=== PATIENT | female | born 1975 | race Caucasian/White ===

== ENCOUNTER → 2017-04-29 | Outpatient (REF) | payer OTHER ==
[~2017-04-29] MED LIST: FLUO20CA8 PO; INDE80CA PO; MAXA5TAB10 PO
== END ==
LOC: M LAB REF 13:34
PROVIDERS: ATTEND Family Medicine
DX: N39.0 Urinary tract infection, site not specified (principal)

== ENCOUNTER → 2017-07-04 | Outpatient (REF) | payer OTHER ==
[2017-07-04 14:03] LABS: BASO # 0.1 10^3/uL (0.0-0.2); EOS # 0.1 10^3/uL (0.0-0.50); EOS % 1.8 % (0.0-3.0); IMMATURE GRANULOCYTE % 0.1 % (0-0); LYMPH # 2.3 10^3/uL (1.5-4.5); LYMPH % 33.4 % (24.0-44.0); MEAN CORPUSCULAR HEMOGLOBIN 25.8 pg (27.0-33.0); MEAN CORPUSCULAR HGB CONC 30.7 g/dl (32.0-36.5); MEAN CORPUSCULAR VOLUME 84.2 fl (80.0-96.0); MONO # 0.7 10^3/uL (0.0-0.8); MONO % 9.6 % (0.0-5.0); NEUTROPHILS # 3.6 10^3/uL (1.8-7.7); NEUTROPHILS % 54.1 % (36.0-66.0); PLATELET COUNT, AUTOMATED 353 10^3/uL (150-450); RED CELL DISTRIBUTION WIDTH 13.3 % (11.5-14.5); WHITE BLOOD COUNT 6.7 10^3/uL (4.0-10.0)
[2017-07-04 14:14] LABS: ALBUMIN 3.5 GM/DL (3.2-5.2); ALBUMIN/GLOBULIN RATIO 1.06 (1.00-1.93); ALKALINE PHOSPHATASE 63 U/L (45-117); ALT/SGPT 33 U/L (12-78); ANION GAP 8 MEQ/L (8-16); AST/SGOT 36 U/L (15-37); BILIRUBIN,TOTAL 0.3 MG/DL (0.2-1.0); BLOOD UREA NITROGEN 11 MG/DL (7-18); CALCIUM LEVEL 8.9 MG/DL (8.5-10.1); CARBON DIOXIDE LEVEL 26 MEQ/L (21-32); CHLORIDE LEVEL 105 MEQ/L (98-107); CREATININE FOR GFR 0.64 MG/DL (0.55-1.02); GLOMERULAR FILTRATION RATE > 60.0 (>58); GLUCOSE, FASTING 92 MG/DL (70-105); POTASSIUM SERUM 4.8 MEQ/L (3.5-5.1); SODIUM LEVEL 139 MEQ/L (136-145); TOTAL PROTEIN 6.8 GM/DL (6.4-8.2); VITAMIN B12 LEVEL 413 PG/ML (247-911)
[2017-07-04 14:15] LABS: FOLATE 19.2 NG/ML (>5.4)
== END ==
LOC: M LABNEURO 09:40
PROVIDERS: ATTEND Psychiatry & Neurology Neurology
DX: R51 Headache (principal)

== ENCOUNTER → 2017-10-30 | Outpatient (REF) | payer OTHER | LOC: M LAB REF 13:28 | DX: Z12.4 Encounter for screening for malignant neoplasm of cervix (principal) | CPT/HCPCS: G0123 ==

== ENCOUNTER → 2018-06-02 | Outpatient (CLI) | payer OTHER | LOC: M RAD 08:22 | DX: Z12.31 Encounter for screening mammogram for malignant neoplasm of breast (principal) ==

== ENCOUNTER → 2018-06-13 | Outpatient (CLI) | payer OTHER | LOC: M RAD 08:43 | DX: N60.01 Solitary cyst of right breast (principal) | CPT/HCPCS: 77065 ==

== ENCOUNTER → 2018-11-21 | Outpatient (REF) | payer OTHER ==
[2018-11-21 11:53] LABS: BASO # 0.1 10^3/uL (0.0-0.2); EOS # 0.2 10^3/uL (0.0-0.50); EOS % 1.9 % (0.0-3.0); HEMATOCRIT 38.4 % (36.0-47.0); HEMOGLOBIN 11.8 g/dl (12.0-15.5); LYMPH # 2.1 10^3/uL (1.5-4.5); LYMPH % 27.3 % (24.0-44.0); MEAN CORPUSCULAR HEMOGLOBIN 25.3 pg (27.0-33.0); MEAN CORPUSCULAR HGB CONC 30.7 g/dl (32.0-36.5); MEAN CORPUSCULAR VOLUME 82.4 fl (80.0-96.0); MONO # 0.9 10^3/uL (0.0-0.8); MONO % 11.6 % (0.0-5.0); NEUTROPHILS # 4.4 10^3/uL (1.8-7.7); NEUTROPHILS % 57.7 % (36.0-66.0); PLATELET COUNT, AUTOMATED 366 10^3/uL (150-450); RED BLOOD COUNT 4.66 10^6/uL (4.00-5.40); WHITE BLOOD COUNT 7.7 10^3/uL (4.0-10.0)
[2018-11-21 12:36] LABS: ALBUMIN 3.4 GM/DL (3.2-5.2); ALT/SGPT 22 U/L (12-78); BILIRUBIN,TOTAL 0.3 MG/DL (0.2-1.0); BLOOD UREA NITROGEN 9 MG/DL (7-18); CALCIUM LEVEL 8.2 MG/DL (8.5-10.1); CARBON DIOXIDE LEVEL 25 MEQ/L (21-32); CHLORIDE LEVEL 107 MEQ/L (98-107); CHOLESTEROL LEVEL 225 MG/DL (<200); CREATININE FOR GFR 0.63 MG/DL (0.55-1.30); GLOMERULAR FILTRATION RATE > 60.0 (>58); GLUCOSE, FASTING 101 MG/DL (70-100); HDL CHOLESTEROL 55 MG/DL (>40); LDL CHOLESTEROL 109 MG/DL (<100); NON-HDL-C 170 MG/DL; POTASSIUM SERUM 4.6 MEQ/L (3.5-5.1); SODIUM LEVEL 140 MEQ/L (136-145); TOTAL 25(OH) VITAMIN D 56.5 NG/ML (30.0-100.0); TOTAL PROTEIN 6.7 GM/DL (6.4-8.2); TRIGLYCERIDES LEVEL 305 MG/DL (<150)
== END ==
LOC: M LABDRAW1 08:56
PROVIDERS: ATTEND Family Medicine
DX: Z00.00 Encounter for general adult medical examination without abnormal findings (principal); E55.9 Vitamin D deficiency, unspecified

== ENCOUNTER → 2019-10-19 | Outpatient (REF) | payer OTHER ==
[2019-10-19 12:55] LABS: ALBUMIN 3.4 GM/DL (3.2-5.2); ALT/SGPT 15 U/L (12-78); BILIRUBIN,TOTAL 0.4 MG/DL (0.2-1.0); BLOOD UREA NITROGEN 10 MG/DL (7-18); CALCIUM LEVEL 9.2 MG/DL (8.5-10.1); CARBON DIOXIDE LEVEL 28 MEQ/L (21-32); CHLORIDE LEVEL 106 MEQ/L (98-107); CREATININE FOR GFR 0.72 MG/DL (0.55-1.30); GLOMERULAR FILTRATION RATE > 60.0 (>58); GLUCOSE, FASTING 115 MG/DL (70-100); POTASSIUM SERUM 4.7 MEQ/L (3.5-5.1); SODIUM LEVEL 139 MEQ/L (136-145); TOTAL PROTEIN 6.7 GM/DL (6.4-8.2)
[2019-10-19 13:04] LABS: HEMOGLOBIN A1c 5.5 %
== END ==
LOC: M LABDRAW1 08:17
PROVIDERS: ATTEND Family Medicine
DX: R73.01 Impaired fasting glucose (principal)

== ENCOUNTER → 2020-01-22 | Outpatient (CLI) | payer OTHER ==
[2020-01-22 11:36] LABS: BASO # 0.1 10^3/uL (0.0-0.2); BASO % 1.2 % (0.0-1.0); EOS # 0.2 10^3/uL (0.0-0.5); EOS % 2.7 % (0.0-3.0); HEMATOCRIT 38.5 % (36.0-47.0); HEMOGLOBIN 12.3 g/dl (12.0-15.5); LYMPH # 2.1 10^3/uL (1.5-5.0); LYMPH % 36.8 % (24.0-44.0); MEAN CORPUSCULAR HEMOGLOBIN 27.3 pg (27.0-33.0); MEAN CORPUSCULAR HGB CONC 31.9 g/dl (32.0-36.5); MEAN CORPUSCULAR VOLUME 85.4 fl (80.0-96.0); MONO # 0.7 10^3/uL (0.0-0.8); MONO % 12.2 % (0.0-5.0); NEUTROPHILS # 2.7 10^3/uL (1.5-8.5); NEUTROPHILS % 46.9 % (36.0-66.0); PLATELET COUNT, AUTOMATED 319 10^3/uL (150-450); RED BLOOD COUNT 4.51 10^6/uL (4.00-5.40); WHITE BLOOD COUNT 5.8 10^3/uL (4.0-10.0)
[2020-01-22 12:00] LABS: ERYTHROCYTE SEDIMENTATION RATE 5 mm/hr (0-20)
[2020-01-22 12:29] LABS: ALBUMIN 3.2 GM/DL (3.2-5.2); ALT/SGPT 23 U/L (12-78); BILIRUBIN,TOTAL 0.3 MG/DL (0.2-1.0); BLOOD UREA NITROGEN 10 MG/DL (7-18); CALCIUM LEVEL 9.1 MG/DL (8.5-10.1); CARBON DIOXIDE LEVEL 28 MEQ/L (21-32); CHLORIDE LEVEL 106 MEQ/L (98-107); CREATININE FOR GFR 0.64 MG/DL (0.55-1.30); GLOMERULAR FILTRATION RATE > 60.0 (>58); GLUCOSE, FASTING 80 MG/DL (70-100); POTASSIUM SERUM 4.9 MEQ/L (3.5-5.1); SODIUM LEVEL 139 MEQ/L (136-145); TOTAL PROTEIN 6.6 GM/DL (6.4-8.2)
== END ==
LOC: M WUC 10:07
DX: M35.9 Systemic involvement of connective tissue, unspecified (principal); R76.8 Other specified abnormal immunological findings in serum; M79.10 Myalgia, unspecified site; M19.90 Unspecified osteoarthritis, unspecified site

== ENCOUNTER → 2020-11-25 | Outpatient (CLI) | payer OTHER ==
[2020-11-25 12:16] LABS: BLOOD UREA NITROGEN 13 MG/DL (7-18); CARBON DIOXIDE LEVEL 25 MEQ/L (21-32); CHLORIDE LEVEL 108 MEQ/L (98-107); CREATININE FOR GFR 0.68 MG/DL (0.55-1.30); GLOMERULAR FILTRATION RATE > 60.0 (>58); GLUCOSE, FASTING 90 MG/DL (70-100); POTASSIUM SERUM 4.8 MEQ/L (3.5-5.1); SODIUM LEVEL 139 MEQ/L (136-145)
[2020-11-25 12:17] LABS: ALBUMIN 3.4 GM/DL (3.2-5.2); ALT/SGPT 19 U/L (12-78); BILIRUBIN,TOTAL 0.4 MG/DL (0.2-1.0); CALCIUM LEVEL 9.1 MG/DL (8.5-10.1); CHOLESTEROL LEVEL 254 MG/DL (<200); CHOLESTEROL RISK RATIO 4.379 (<5); HDL CHOLESTEROL 58 MG/DL (>40); LDL CHOLESTEROL 140 MG/DL (<100); NON-HDL-C 196 MG/DL; TOTAL PROTEIN 6.9 GM/DL (6.4-8.2); TRIGLYCERIDES LEVEL 278 MG/DL (<150)
[2020-11-25 13:31] LABS: HEMOGLOBIN A1c 5.5 %
== END ==
LOC: M WUC 08:41
PROVIDERS: ATTEND Family Medicine
DX: R73.01 Impaired fasting glucose (principal)

== ENCOUNTER → 2020-12-13 | Outpatient (REF) | payer OTHER | LOC: M LAB REF 19:00 | PROVIDERS: ATTEND Family Medicine | DX: Z01.419 Encounter for gynecological examination (general) (routine) without abnormal findings (principal) ==

== ENCOUNTER → 2021-08-30 | Outpatient (CLI) | payer OTHER ==
[2021-08-30 13:08] LABS: HEMATOCRIT 40.4 % (36.0-47.0); HEMOGLOBIN 12.4 g/dl (12.0-15.5); MEAN CORPUSCULAR HEMOGLOBIN 26.3 pg (27.0-33.0); MEAN CORPUSCULAR HGB CONC 30.7 g/dl (32.0-36.5); MEAN CORPUSCULAR VOLUME 85.6 fl (80.0-96.0); PLATELET COUNT, AUTOMATED 320 10^3/uL (150-450); RED BLOOD COUNT 4.72 10^6/uL (4.00-5.40); WHITE BLOOD COUNT 7.5 10^3/uL (4.0-10.0)
== END ==
LOC: M PLALAB 09:58
PROVIDERS: ATTEND Obstetrics & Gynecology
DX: N93.9 Abnormal uterine and vaginal bleeding, unspecified (principal)
CPT/HCPCS: 36415; 84443; 85027; G0463

== ENCOUNTER → 2021-09-08 | Outpatient (CLI) | payer OTHER | LOC: M WHC 09:08 | PROVIDERS: ATTEND Obstetrics & Gynecology | DX: N93.9 Abnormal uterine and vaginal bleeding, unspecified (principal) ==

== ENCOUNTER → 2021-10-10 | Outpatient (REF) | payer OTHER | LOC: M SFHCWAGY 19:20 | PROVIDERS: ATTEND Obstetrics & Gynecology | DX: N93.9 Abnormal uterine and vaginal bleeding, unspecified (principal) ==

== ENCOUNTER → 2021-12-06 | Outpatient (CLI) | payer OTHER ==
[~2021-12-06] MED LIST changes: +DEPA1TAB3 PO; +GABA-282 PO; +IBUP200C25 PO; +INDE80CA9 PO; +LEFL10TA12 PO; +PLAQ200T4 PO; +PROZ20CA11 PO; +RIZA5TAB52 PO
[2021-12-06 13:46] LABS: BASO # 0.1 10^3/uL (0.0-0.2); BASO % 1.1 % (0.0-1.0); EOS # 0.2 10^3/uL (0.0-0.5); EOS % 2.2 % (0.0-3.0); HEMATOCRIT 41.9 % (36.0-47.0); HEMOGLOBIN 12.9 g/dl (12.0-15.5); LYMPH # 2.3 10^3/uL (1.5-5.0); LYMPH % 29.7 % (24.0-44.0); MEAN CORPUSCULAR HEMOGLOBIN 26.2 pg (27.0-33.0); MEAN CORPUSCULAR HGB CONC 30.8 g/dl (32.0-36.5); MONO # 0.8 10^3/uL (0.0-0.8); NEUTROPHILS # 4.3 10^3/uL (1.5-8.5); NEUTROPHILS % 55.9 % (36.0-66.0); PLATELET COUNT, AUTOMATED 294 10^3/uL (150-450); RED BLOOD COUNT 4.93 10^6/uL (4.00-5.40); WHITE BLOOD COUNT 7.6 10^3/uL (4.0-10.0)
[2021-12-06 14:10] LABS: ALBUMIN 3.3 GM/DL (3.2-5.2); ALT/SGPT 23 U/L (12-78); BILIRUBIN,TOTAL 0.3 MG/DL (0.2-1.0); BLOOD UREA NITROGEN 13 MG/DL (7-18); CALCIUM LEVEL 9.1 MG/DL (8.5-10.1); CARBON DIOXIDE LEVEL 29 MEQ/L (21-32); CHLORIDE LEVEL 108 MEQ/L (98-107); CREATININE FOR GFR 0.72 MG/DL (0.55-1.30); GLOMERULAR FILTRATION RATE > 60.0 (>58); GLUCOSE, FASTING 83 MG/DL (70-100); POTASSIUM SERUM 5.2 MEQ/L (3.5-5.1); SODIUM LEVEL 141 MEQ/L (136-145)
== END ==
LOC: M WUC 10:38
PROVIDERS: ATTEND Nurse Practitioner Family
DX: Z01.818 Encounter for other preprocedural examination (principal)

== ENCOUNTER → 2021-12-11 | Outpatient (CLI) | payer OTHER | LOC: M LABSMTC 09:31 | PROVIDERS: ATTEND Anesthesiology | DX: Z01.818 Encounter for other preprocedural examination (principal); Z11.52 Encounter for screening for COVID-19 ==

== ENCOUNTER 2021-12-15 14:17 | Day surgery (SDC) | payer OTHER ==
[~2021-12-15] VITALS: Ht 160 cm; Wt 73.5 kg
[~2021-12-15 14:17] MED LIST changes: +LR 1,000 ML IV ONE
[2021-12-15 14:43] LABS: HEMATOCRIT 37.9 % (36.0-47.0); HEMOGLOBIN 12.3 g/dl (12.0-15.5); MEAN CORPUSCULAR HEMOGLOBIN 26.5 pg (27.0-33.0); MEAN CORPUSCULAR HGB CONC 32.5 g/dl (32.0-36.5); MEAN CORPUSCULAR VOLUME 81.7 fl (80.0-96.0); PLATELET COUNT, AUTOMATED 321 10^3/uL (150-450); RED BLOOD COUNT 4.64 10^6/uL (4.00-5.40); WHITE BLOOD COUNT 10.1 10^3/uL (4.0-10.0)
[2021-12-15] MEDS ORDERED: SCOPOLAMINE 1MG TRANSDERMAL PATCH TOP ONE (16:30)
[2021-12-15] MEDS ORDERED: MIDAZOLAM INJ 2MG/2ML VIAL (J2250 PER 1MG) As Ordered ONE (18:07)
[2021-12-15] MEDS ORDERED: fentaNYL 100 MCG/2 ML INJECTION As Ordered ONE (18:07)
[2021-12-15] MEDS ORDERED: dexameTHASONE 4 MG/ML 1ML VIAL (J1100 PER 1MG) As Ordered ONE (18:07)
[2021-12-15] MEDS ORDERED: LIDOCAINE 2% 100MG/5ML SDV (FOR ANES.) As Ordered ONE (18:07)
[2021-12-15] MEDS ORDERED: KETOROLAC 60MG 2ML VIAL As Ordered ONE (18:07)
[2021-12-15] MEDS ORDERED: ONDANSETRON 4MG/2ML VIAL As Ordered ONE (18:07)
[2021-12-15] MEDS ORDERED: propofoL 200 MG/20 ML VIAL As Ordered ONE (18:07)
[2021-12-15] MEDS ORDERED: ACETAMINOPHEN 1000MG 100ML IV BTL (OFIRMEV) (J0131 PER 10MG) As Ordered ONE (18:11)
[2021-12-15] MEDS ORDERED: SILVER NITRATE APPLICATOR As Ordered ONE (18:25)
[2021-12-15] MEDS ORDERED: KETOROLAC 30 MG/ML 1ML VIAL IV PRN (18:30)
[2021-12-15] MEDS ORDERED: IBUP1TAB7 PO (18:40)
[2021-12-15] MEDS ORDERED: COLA100C5 PO (18:41)
[2021-12-15] MEDS ORDERED: OXYC1TAB23 PO (18:41)
[2021-12-15] MEDS ORDERED: fentaNYL 100 MCG/2 ML INJECTION IV PRN (19:00)
[2021-12-15] MEDS ORDERED: HYDROMORPHONE HCL 0.5 MG/ 0.5 ML SYRINGE (J1170 PER 1) IV PRN (19:00)
[2021-12-15] MEDS ORDERED: ONDANSETRON 4MG/2ML VIAL IV PRN (19:00)
[2021-12-15] MEDS ORDERED: LR 1,000 ML IV SCH (19:00)
[2021-12-15] MEDS ORDERED: oxyCODONE 5MG TAB PO PRN (19:00)
[2021-12-15 19:17] VITALS: BP 168/85
== END 2021-12-15 19:51 | disposition home or self-care (01) ==
LOC: M SDC 14:17
PROVIDERS: ATTEND Obstetrics & Gynecology
DX: N93.9 Abnormal uterine and vaginal bleeding, unspecified (principal); K21.9 Gastro-esophageal reflux disease without esophagitis; M32.9 Systemic lupus erythematosus, unspecified; K58.8 Other irritable bowel syndrome; F41.9 Anxiety disorder, unspecified; M79.7 Fibromyalgia; Z79.899 Other long term (current) drug therapy; Z91.040 Latex allergy status
CPT/HCPCS: 36415; 58563; 85027; 86850; 86900; 86901; 88305; J0131; J1100; J1885; J2250; J2405; J3010

== ENCOUNTER → 2022-05-02 | Outpatient (REF) | payer OTHER ==
[~2022-05-02] MED LIST changes: +COLA100C5 PO; +IBUP1TAB7 PO; -LR 1,000 ML IV ONE; +OXYC1TAB23 PO
== END ==
LOC: M SFHCWAGY 17:08
PROVIDERS: ATTEND Obstetrics & Gynecology
DX: Z12.4 Encounter for screening for malignant neoplasm of cervix (principal)
CPT/HCPCS: 87624; G0123

== ENCOUNTER → 2022-05-10 | Outpatient (CLI) | payer OTHER | LOC: M WHC 08:01 | PROVIDERS: ATTEND Obstetrics & Gynecology | DX: R93.89 Abnormal findings on diagnostic imaging of other specified body structures (principal); N93.9 Abnormal uterine and vaginal bleeding, unspecified ==

== ENCOUNTER 2022-06-01 07:44 | Emergency (ER) | payer OTHER ==
[~2022-06-01] VITALS: Ht 162.6 cm; Wt 74.1 kg
[2022-06-01] MEDS ORDERED: KETOROLAC 30 MG/ML 1ML VIAL IV ONE (08:40)
[2022-06-01] MEDS ORDERED: LIDOCAINE 5% (LIDODERM) PATCH TD ONE (08:40)
[2022-06-01] MEDS ORDERED: diazePAM 10MG/2ML SYRINGE (J3360 PER 5MG) IV ONE ×2 (08:40→11:20)
[2022-06-01 08:45] LABS: BASO # 0.1 10^3/uL (0.0-0.2); BASO % 1.1 % (0.0-1.0); EOS # 0.2 10^3/uL (0.0-0.5); EOS % 2.5 % (0.0-3.0); HEMATOCRIT 40.3 % (36.0-47.0); LYMPH # 1.7 10^3/uL (1.5-5.0); LYMPH % 22.3 % (24.0-44.0); MEAN CORPUSCULAR HEMOGLOBIN 27.6 pg (27.0-33.0); MEAN CORPUSCULAR HGB CONC 32.3 g/dl (32.0-36.5); MEAN CORPUSCULAR VOLUME 85.6 fl (80.0-96.0); MONO # 0.9 10^3/uL (0.0-0.8); MONO % 12.2 % (2.0-8.0); NEUTROPHILS # 4.6 10^3/uL (1.5-8.5); NEUTROPHILS % 61.5 % (36.0-66.0); PLATELET COUNT, AUTOMATED 265 10^3/uL (150-450); RED BLOOD COUNT 4.71 10^6/uL (4.00-5.40); WHITE BLOOD COUNT 7.5 10^3/uL (4.0-10.0)
[2022-06-01 09:35] LABS: ALBUMIN 3.5 GM/DL (3.2-5.2); ALT/SGPT 20 U/L (12-78); BILIRUBIN,DIRECT < 0.1 MG/DL (0.0-0.2); BILIRUBIN,TOTAL 0.3 MG/DL (0.2-1.0); BLOOD UREA NITROGEN 12 MG/DL (7-18); CALCIUM LEVEL 9.1 MG/DL (8.5-10.1); CARBON DIOXIDE LEVEL 25 MEQ/L (21-32); CHLORIDE LEVEL 104 MEQ/L (98-107); CREATININE FOR GFR 0.71 MG/DL (0.55-1.30); GLOMERULAR FILTRATION RATE > 60.0 (>58); GLUCOSE, FASTING 114 MG/DL (70-100); HCG, SERUM QUANTITATIVE < 1.0 MIU/ML; LIPASE 174 U/L (73-393); SODIUM LEVEL 135 MEQ/L (136-145); TOTAL PROTEIN 6.8 GM/DL (6.4-8.2)
[2022-06-01] MEDS ORDERED: methylPREDNISolone 125MG 2ML VIAL IV ONE (09:55)
[2022-06-01] MEDS ORDERED: MORPHINE 4 MG/ML 1ML VIAL/SYRINGE IV ONE ×2 (09:55→14:35)
[2022-06-01 15:01] VITALS: BP 130/61
[2022-06-01] MEDS ORDERED: NAPR-837 PO (15:36)
[2022-06-01] MEDS ORDERED: METH-1165 PO (15:36)
[2022-06-01] MEDS ORDERED: PRED20TA PO (15:36)
[2022-06-01] MEDS ORDERED: ASPE4PAD TOP (15:36)
[2022-06-01] MEDS ORDERED: **NOTE PATIENT COMMENT** MISC XX SCH (21:00)
== END 2022-06-01 16:10 | disposition home or self-care (01) ==
LOC: EDBD 07:44 → M ED 07:44
DX: M51.27 Other intervertebral disc displacement, lumbosacral region (principal); M32.9 Systemic lupus erythematosus, unspecified; Z86.73 Personal history of transient ischemic attack (TIA), and cerebral infarction without residual deficits; Z87.442 Personal history of urinary calculi; Z91.040 Latex allergy status; Z79.899 Other long term (current) drug therapy
CPT/HCPCS: 72148; 74176; 80048; 80076; 83690; 84702; 85025; 93041; 96374; 96375; 96376; 99284; J1885; J2270; J2930; J3360

== ENCOUNTER 2022-06-25 04:57 | Inpatient (IN) | payer OTHER ==
[~2022-06-25] VITALS: Ht 160 cm; Wt 73.6 kg
[~2022-06-25 04:57] MED LIST changes: +ASPE4PAD TOP; +METH-1165 PO; +NAPR-837 PO; +PRED20TA PO
[2022-06-25] MEDS ORDERED: KETOROLAC 30 MG/ML 1ML VIAL IV ONE (07:30)
[2022-06-25] MEDS ORDERED: diazePAM 10MG/2ML SYRINGE (J3360 PER 5MG) IV ONE (07:30)
[2022-06-25] MEDS ORDERED: methylPREDNISolone 125MG 2ML VIAL IV ONE (07:30)
[2022-06-25 08:33] LABS: APPEARANCE, URINE MANUAL CLEAR (CLEAR); COLOR, URINE MANUAL YELLOW (YELLOW); PROTEIN, URINE MANUAL NEGATIVE (NEGATIVE); SPECIFIC GRAVITY,URINE MANUAL 1.015 (1.002-1.035)
[2022-06-25 08:34] LABS: BILIRUBIN, URINE MANUAL NEGATIVE (NEGATIVE); BLOOD URINE MANUAL NEGATIVE (NEGATIVE); GLUCOSE, URINE (UA) MANUAL NEGATIVE (NEGATIVE); KETONE, URINE MANUAL NEGATIVE (NEGATIVE); LEUKOCYTE ESTERASE, URINE MAN NEGATIVE (NEGATIVE); NITRITE, URINE MANUAL NEGATIVE (NEGATIVE); PH,URINE MAN 5.5 UNITS (5.0 - 7.0); UROBILINOGEN, URINE MANUAL NORMAL (NORMAL)
[2022-06-25] MEDS ORDERED: MORPHINE 4 MG/ML 1ML VIAL/SYRINGE IV ONE ×3 (08:45→19:05)
[2022-06-25] MEDS ORDERED: TRAM37.53 PO (09:04)
[2022-06-25] MEDS ORDERED: VITA500045 PO (09:04)
[2022-06-25 10:32] LABS: BASO % 0.5 % (0.0-1.0); EOS # 0.1 10^3/uL (0.0-0.5); EOS % 1.9 % (0.0-3.0); HEMATOCRIT 37.4 % (36.0-47.0); LYMPH # 1.2 10^3/uL (1.5-5.0); LYMPH % 16.6 % (24.0-44.0); MEAN CORPUSCULAR HEMOGLOBIN 27.2 pg (27.0-33.0); MEAN CORPUSCULAR HGB CONC 32.1 g/dl (32.0-36.5); MEAN CORPUSCULAR VOLUME 84.8 fl (80.0-96.0); MONO # 0.5 10^3/uL (0.0-0.8); MONO % 6.3 % (2.0-8.0); NEUTROPHILS # 5.5 10^3/uL (1.5-8.5); NEUTROPHILS % 74.4 % (36.0-66.0); PLATELET COUNT, AUTOMATED 271 10^3/uL (150-450); RED BLOOD COUNT 4.41 10^6/uL (4.00-5.40); WHITE BLOOD COUNT 7.3 10^3/uL (4.0-10.0)
[2022-06-25 11:02] LABS: ERYTHROCYTE SEDIMENTATION RATE 12 mm/hr (0-20)
[2022-06-25 11:08] LABS: BLOOD UREA NITROGEN 6 MG/DL (7-18); CARBON DIOXIDE LEVEL 26 MEQ/L (21-32); CHLORIDE LEVEL 109 MEQ/L (98-107); CREATININE FOR GFR 0.66 MG/DL (0.55-1.30); GLOMERULAR FILTRATION RATE > 60.0 (>58); GLUCOSE, FASTING 123 MG/DL (70-100); POTASSIUM SERUM 4.3 MEQ/L (3.5-5.1); SODIUM LEVEL 140 MEQ/L (136-145)
[2022-06-25] MEDS ORDERED: fentaNYL 100 MCG/2 ML INJECTION IV ONE ×2 (11:15→13:30)
[2022-06-25] MEDS ORDERED: GABAPENTIN 400MG CAP PO ONE (11:15)
[2022-06-25] MEDS ORDERED: IBUP80TA PO (14:15)
[2022-06-25] MEDS ORDERED: HOME MED LIST COMPLETE! XX SCH (14:20)
[2022-06-25] MEDS ORDERED: LIDOCAINE 5% (LIDODERM) PATCH TD ONE (22:00)
[2022-06-25] MEDS: DIVALPROEX 500 MG TAB PO SCH (22:49)
[2022-06-25] MEDS: GABAPENTIN 300 MG CAP PO SCH (22:49)
[2022-06-25] MEDS: KETOROLAC 30 MG/ML 1ML VIAL IV PRN (22:50)
[2022-06-25] MEDS: CYCLOBENZAPRINE 5MG TABLET PO PRN (22:59)
[2022-06-25] MEDS: HEPARIN SOD (PORCINE) 5000UNITS/ML 1ML VIAL/SYRINGE SC SCH (22:59)
[2022-06-26] MEDS: HYDROXYCHLOROQUINE 200 MG TAB PO SCH ×3 (00:33→21:44)
[2022-06-26] MEDS: ULTRACET TAB PO SCH ×5 (00:33→21:45)
[2022-06-26] MEDS: NORCO, ANEXSIA 5/325MG TABLET (HYDROcodone/ACETAMINOPHEN) PO PRN ×4 (02:31→23:01)
[2022-06-26] MEDS: KETOROLAC 30 MG/ML 1ML VIAL IV PRN ×3 (05:11→18:13)
[2022-06-26] MEDS: HEPARIN SOD (PORCINE) 5000UNITS/ML 1ML VIAL/SYRINGE SC SCH ×3 (05:56→21:46)
[2022-06-26 06:45] LABS: BLOOD UREA NITROGEN 12 MG/DL (7-18); CALCIUM LEVEL 9.3 MG/DL (8.5-10.1); CARBON DIOXIDE LEVEL 27 MEQ/L (21-32); CHLORIDE LEVEL 107 MEQ/L (98-107); CREATININE FOR GFR 0.65 MG/DL (0.55-1.30); GLOMERULAR FILTRATION RATE > 60.0 (>58); GLUCOSE, FASTING 115 MG/DL (70-100); POTASSIUM SERUM 5.1 MEQ/L (3.5-5.1); SODIUM LEVEL 138 MEQ/L (136-145)
[2022-06-26] MEDS ORDERED: FLUoxetine 20MG CAP PO SCH (09:00)
[2022-06-26] MEDS: GABAPENTIN 300 MG CAP PO SCH ×3 (09:04→21:44)
[2022-06-26] MEDS: PROPRANOLOL 80 MG LA CAP PO SCH (09:08)
[2022-06-26] MEDS: **NOTE PATIENT COMMENT** MISC XX SCH (09:56)
[2022-06-26] MEDS ORDERED: MORPHINE 4 MG/ML 1ML VIAL/SYRINGE IV ONE (10:55)
[2022-06-26 14:11] VITALS: BP 165/90
[2022-06-26] MEDS: CYCLOBENZAPRINE 5MG TABLET PO PRN ×2 (15:48→23:01)
[2022-06-26 15:50] VITALS: BP 185/96
[2022-06-26 21:33] VITALS: BP 158/82
[2022-06-26] MEDS: DIVALPROEX 500 MG TAB PO SCH (21:44)
[2022-06-26] MEDS: LIDOCAINE 5% (LIDODERM) PATCH TOP SCH (21:46)
[2022-06-26] MEDS ORDERED: CelecoXIB (CeleBREX) 100 MG CAP PO ONE (22:00)
[2022-06-27] MEDS ORDERED: MORPHINE 2 MG/ML 1ML VIAL IV PRN ×2 (02:55→06:00)
[2022-06-27] MEDS: HEPARIN SOD (PORCINE) 5000UNITS/ML 1ML VIAL/SYRINGE SC SCH ×3 (04:38→21:07)
[2022-06-27 04:47] VITALS: BP 180/92
[2022-06-27] MEDS ORDERED: MORPHINE 2 MG/ML 1ML VIAL IV ONE (05:00)
[2022-06-27] MEDS: NORCO, ANEXSIA 5/325MG TABLET (HYDROcodone/ACETAMINOPHEN) PO PRN ×3 (06:48→23:07)
[2022-06-27] MEDS: GABAPENTIN 300 MG CAP PO SCH (09:07)
[2022-06-27] MEDS: DULoxetine 20 MG CAP (CYMBALTA) PO SCH (09:07)
[2022-06-27] MEDS: CYCLOBENZAPRINE 5MG TABLET PO PRN ×2 (09:07→21:06)
[2022-06-27] MEDS: PROPRANOLOL 80 MG LA CAP PO SCH (09:07)
[2022-06-27] MEDS: ULTRACET TAB PO SCH ×4 (09:08→21:06)
[2022-06-27] MEDS: HYDROXYCHLOROQUINE 200 MG TAB PO SCH ×2 (09:08→21:06)
[2022-06-27] MEDS: **NOTE PATIENT COMMENT** MISC XX SCH (10:09)
[2022-06-27 14:08] LABS: INR 0.9; PROTHROMBIN TIME 12.5 SECONDS (12.7-14.5)
[2022-06-27] MEDS: GABAPENTIN 400MG CAP PO SCH ×2 (16:51→21:06)
[2022-06-27 20:56] VITALS: BP 129/93
[2022-06-27] MEDS: DIVALPROEX 500 MG TAB PO SCH (21:06)
[2022-06-27] MEDS: LIDOCAINE 5% (LIDODERM) PATCH TOP SCH (21:07)
[2022-06-28] VITALS (9 sets, daily range): BP systolic 146–179; BP diastolic 95–116
[2022-06-28] MEDS: KETOROLAC 30 MG/ML 1ML VIAL IV PRN (03:50)
[2022-06-28] MEDS ORDERED: hydrALAZINE 20MG/ML 1ML VIAL (J0360 PER 20MG) IV ONE (07:00)
[2022-06-28] MEDS: PROPRANOLOL 80 MG LA CAP PO SCH (07:27)
[2022-06-28] MEDS: CYCLOBENZAPRINE 5MG TABLET PO PRN ×2 (07:27→23:39)
[2022-06-28] MEDS: NORCO, ANEXSIA 5/325MG TABLET (HYDROcodone/ACETAMINOPHEN) PO PRN ×2 (07:27→22:39)
[2022-06-28] MEDS: DULoxetine 20 MG CAP (CYMBALTA) PO SCH (08:14)
[2022-06-28] MEDS: ULTRACET TAB PO SCH ×4 (08:14→20:01)
[2022-06-28] MEDS: GABAPENTIN 400MG CAP PO SCH ×3 (08:14→20:01)
[2022-06-28] MEDS: **NOTE PATIENT COMMENT** MISC XX SCH (08:14)
[2022-06-28] MEDS: HYDROXYCHLOROQUINE 200 MG TAB PO SCH ×2 (08:14→20:01)
[2022-06-28] MEDS ORDERED: TRANEXAMIC ACID 100 MG/ML 10ML VIAL As Ordered ONE ×2 (09:24→13:01)
[2022-06-28] MEDS ORDERED: BUPIVACAINE HCL 0.25% 10ML VIAL As Ordered ONE (09:24)
[2022-06-28] MEDS ORDERED: THROMBIN SOLN 20,000 UNITS KIT As Ordered ONE (09:24)
[2022-06-28] MEDS ORDERED: BUPIVACAINE LIPOSOME/PF 1.3% 20ML VIAL (13.3MG/ML)(EXPAREL) As Ordered ONE (09:25)
[2022-06-28] MEDS ORDERED: BUPIVACAINE/EPIN 0.5% 30 ML VIAL As Ordered ONE (09:25)
[2022-06-28] MEDS ORDERED: fentaNYL 250 MCG/5 ML INJECTION As Ordered ONE (12:05)
[2022-06-28] MEDS ORDERED: MIDAZOLAM INJ 2MG/2ML VIAL (J2250 PER 1MG) As Ordered ONE (12:06)
[2022-06-28] MEDS ORDERED: propofoL 200 MG/20 ML VIAL As Ordered ONE (12:06)
[2022-06-28] MEDS ORDERED: LIDOCAINE 2% 100MG/5ML SDV (FOR ANES.) As Ordered ONE (12:06)
[2022-06-28] MEDS ORDERED: ROCURONIUM BROMIDE 50 MG/5 ML VIAL As Ordered ONE (12:06)
[2022-06-28] MEDS ORDERED: dexameTHASONE 4 MG/ML 1ML VIAL (J1100 PER 1MG) As Ordered ONE (12:07)
[2022-06-28] MEDS ORDERED: ONDANSETRON 4MG 2ML VIAL As Ordered ONE (12:07)
[2022-06-28] MEDS ORDERED: ACETAMINOPHEN 1000MG 100ML IV BTL (OFIRMEV) (J0131 PER 10MG) As Ordered ONE (12:07)
[2022-06-28 12:56] LABS: URINE PREG TEST NEGATIVE (NEGATIVE)
[2022-06-28] MEDS ORDERED: SCOPOLAMINE 1MG TRANSDERMAL PATCH TOP ONE (13:05)
[2022-06-28] MEDS ORDERED: ceFAZolin 2 GM/D5W 50 ML IV BAG (J0690 PER 500MG) As Ordered ONE (13:44)
[2022-06-28] MEDS ORDERED: ePHEDrine SULFATE 25 MG/5 ML(5MG/ML) SYRINGE As Ordered ONE ×2 (14:01→14:18)
[2022-06-28] MEDS ORDERED: SUGAMMADEX SODIUM 500 MG/5 ML VIAL (BRIDION) As Ordered ONE (14:09)
[2022-06-28] MEDS ORDERED: HYDROmorphone HCL 2MG/ML 1ML VIAL As Ordered ONE (14:38)
[2022-06-28] MEDS ORDERED: VANCOMYCIN 1000MG/20ML VIAL As Ordered ONE (15:00)
[2022-06-28] MEDS ORDERED: LR 1,000 ML IV SCH (15:20)
[2022-06-28] MEDS ORDERED: MORPHINE 2 MG/ML 1ML VIAL IV PRN (15:20)
[2022-06-28] MEDS ORDERED: oxyCODONE 5MG TAB PO PRN (15:20)
[2022-06-28] MEDS ORDERED: ONDANSETRON 4MG 2ML VIAL IV PRN (15:20)
[2022-06-28] MEDS: fentaNYL 100 MCG/2 ML INJECTION IV PRN ×4 (15:53→16:24)
[2022-06-28] MEDS: DIVALPROEX 500 MG TAB PO SCH (20:01)
[2022-06-28] MEDS: LIDOCAINE 5% (LIDODERM) PATCH TOP SCH (22:00)
[2022-06-28] MEDS: ceFAZolin SOD 1 GM in D5W MINI-BAG PLUS 50 ML IV SCH (22:38)
[2022-06-28] MEDS: HEPARIN SOD (PORCINE) 5000UNITS/ML 1ML VIAL/SYRINGE SC SCH (22:38)
[2022-06-29 01:41] VITALS: BP 154/83
[2022-06-29] MEDS: KETOROLAC 30 MG/ML 1ML VIAL IV PRN (01:47)
[2022-06-29] MEDS ORDERED: BISACODYL 5 MG TAB PO PRN (01:50)
[2022-06-29] MEDS: DOCUSATE SODIUM 100MG CAPSULE PO SCH ×2 (02:27→08:30)
[2022-06-29 05:23] VITALS: BP 161/101
[2022-06-29] MEDS: ceFAZolin SOD 1 GM in D5W MINI-BAG PLUS 50 ML IV SCH (05:23)
[2022-06-29] MEDS: HEPARIN SOD (PORCINE) 5000UNITS/ML 1ML VIAL/SYRINGE SC SCH (05:23)
[2022-06-29] MEDS: NORCO, ANEXSIA 5/325MG TABLET (HYDROcodone/ACETAMINOPHEN) PO PRN ×2 (05:24→11:47)
[2022-06-29] MEDS ORDERED: oxyCODONE 5MG TAB PO ONE (06:00)
[2022-06-29 08:02] LABS: BASO % 0.1 % (0.0-1.0); EOS % 0.1 % (0.0-3.0); HEMATOCRIT 39.2 % (36.0-47.0); HEMOGLOBIN 12.5 g/dl (12.0-15.5); LYMPH # 2.2 10^3/uL (1.5-5.0); LYMPH % 15.8 % (24.0-44.0); MEAN CORPUSCULAR HEMOGLOBIN 27.1 pg (27.0-33.0); MEAN CORPUSCULAR HGB CONC 31.9 g/dl (32.0-36.5); MONO # 1.5 10^3/uL (0.0-0.8); MONO % 10.8 % (2.0-8.0); NEUTROPHILS # 10.1 10^3/uL (1.5-8.5); NEUTROPHILS % 72.8 % (36.0-66.0); PLATELET COUNT, AUTOMATED 349 10^3/uL (150-450); RED BLOOD COUNT 4.61 10^6/uL (4.00-5.40); WHITE BLOOD COUNT 13.9 10^3/uL (4.0-10.0)
[2022-06-29] MEDS ORDERED: CYMB1CAP4 PO (08:30)
[2022-06-29] MEDS ORDERED: CYCL5TAB PO (08:30)
[2022-06-29] MEDS: HYDROXYCHLOROQUINE 200 MG TAB PO SCH (08:30)
[2022-06-29] MEDS: GABAPENTIN 400MG CAP PO SCH (08:30)
[2022-06-29] MEDS: ULTRACET TAB PO SCH (08:30)
[2022-06-29] MEDS ORDERED: HYDR-3715 PO (08:30)
[2022-06-29] MEDS ORDERED: GABA-283 PO (08:30)
[2022-06-29 08:31] VITALS: BP 159/98
[2022-06-29] MEDS: PROPRANOLOL 80 MG LA CAP PO SCH (08:31)
[2022-06-29] MEDS: DULoxetine 20 MG CAP (CYMBALTA) PO SCH (08:31)
[2022-06-29] MEDS: **NOTE PATIENT COMMENT** MISC XX SCH (08:31)
[2022-06-29 08:33] LABS: BLOOD UREA NITROGEN 8 MG/DL (7-18); CALCIUM LEVEL 9.1 MG/DL (8.5-10.1); CARBON DIOXIDE LEVEL 27 MEQ/L (21-32); CHLORIDE LEVEL 104 MEQ/L (98-107); CREATININE FOR GFR 0.76 MG/DL (0.55-1.30); GLOMERULAR FILTRATION RATE > 60.0 (>58); GLUCOSE, FASTING 118 MG/DL (70-100); MAGNESIUM LEVEL 2.1 MG/DL (1.8-2.4); POTASSIUM SERUM 4.3 MEQ/L (3.5-5.1); SODIUM LEVEL 137 MEQ/L (136-145)
[2022-06-29] MEDS ORDERED: MIRALAX *UNIT DOSE* 17GM PACKET PO SCH (09:00)
[2022-06-29 10:45] VITALS: BP 172/104
[2022-06-29] MEDS: CYCLOBENZAPRINE 5MG TABLET PO PRN (11:47)
== END 2022-06-29 13:55 | disposition home or self-care (01) | DRG 520 ==
LOC: M ED 04:57 → M ED INP 21:42 → ENRESERV 06-26 14:46 → M MS5PR 06-26 15:55
PROVIDERS: ADMIT Internal Medicine; ATTEND Internal Medicine
PROC: 0ST40ZZ Resection of Lumbosacral Disc, Open Approach (ICD-10-PCS; principal; 2022-06-28 12:00)
DX: M51.17 Intervertebral disc disorders with radiculopathy, lumbosacral region (principal); I10 Essential (primary) hypertension; G43.909 Migraine, unspecified, not intractable, without status migrainosus; M32.10 Systemic lupus erythematosus, organ or system involvement unspecified; F32.A Depression, unspecified; Z79.899 Other long term (current) drug therapy; Z91.040 Latex allergy status

== ENCOUNTER 2022-07-05 11:04 | Inpatient (IN) | payer OTHER ==
[~2022-07-05] VITALS: Ht 160 cm; Wt 70.5 kg
[~2022-07-05 11:04] MED LIST changes: +CYCL5TAB PO; +CYMB1CAP4 PO; +GABA-283 PO; +HYDR-3715 PO; +IBUP80TA PO; +TRAM37.53 PO; +VITA500045 PO
[2022-07-05] MEDS ORDERED: diazePAM 5MG TABLET PO ONE (11:40)
[2022-07-05] MEDS ORDERED: ACETAMINOPHEN 1000MG 100ML IV BTL (OFIRMEV) (J0131 PER 10MG) IV ONE (11:40)
[2022-07-05 12:30] LABS: BASO # 0.1 10^3/uL (0.0-0.2); EOS # 0.3 10^3/uL (0.0-0.5); EOS % 3.1 % (0.0-3.0); HEMATOCRIT 38.3 % (36.0-47.0); HEMOGLOBIN 12.2 g/dl (12.0-15.5); LYMPH # 1.6 10^3/uL (1.5-5.0); LYMPH % 19.8 % (24.0-44.0); MEAN CORPUSCULAR HEMOGLOBIN 27.4 pg (27.0-33.0); MEAN CORPUSCULAR HGB CONC 31.9 g/dl (32.0-36.5); MEAN CORPUSCULAR VOLUME 86.1 fl (80.0-96.0); MONO # 1.2 10^3/uL (0.0-0.8); MONO % 13.9 % (2.0-8.0); NEUTROPHILS # 5.1 10^3/uL (1.5-8.5); NEUTROPHILS % 61.7 % (36.0-66.0); PLATELET COUNT, AUTOMATED 366 10^3/uL (150-450); RED BLOOD COUNT 4.45 10^6/uL (4.00-5.40); WHITE BLOOD COUNT 8.3 10^3/uL (4.0-10.0)
[2022-07-05] MEDS ORDERED: CYCL5TAB PO (12:35)
[2022-07-05] MEDS ORDERED: DIVA250T67 PO (12:48)
[2022-07-05] MEDS ORDERED: HYDR200T3 PO (12:48)
[2022-07-05] MEDS ORDERED: LEFL10TA12 PO (12:48)
[2022-07-05] MEDS ORDERED: PROP80CA PO (12:48)
[2022-07-05] MEDS ORDERED: OXYC10TA3 PO (12:48)
[2022-07-05] MEDS ORDERED: RIZA5TAB52 PO (12:48)
[2022-07-05] MEDS ORDERED: MORPHINE 4 MG/ML 1ML VIAL/SYRINGE IV ONE ×2 (12:50→15:20)
[2022-07-05] MEDS ORDERED: DULO1CAP4 PO (12:58)
[2022-07-05] MEDS ORDERED: ASPE4PAD TOP (12:58)
[2022-07-05] MEDS ORDERED: GABA-283 PO (12:58)
[2022-07-05] MEDS ORDERED: NAPR-885 PO (12:58)
[2022-07-05] MEDS ORDERED: KETO10TAB PO (12:58)
[2022-07-05 13:00] LABS: ERYTHROCYTE SEDIMENTATION RATE 34 mm/hr (0-20)
[2022-07-05 13:01] LABS: RSV AMPLIFICATION NEGATIVE (NEGATIVE)
[2022-07-05] MEDS ORDERED: HOME MED LIST COMPLETE! XX SCH (13:05)
[2022-07-05] MEDS ORDERED: PROHANCE 279.3MG/ML 15ML VIAL As Ordered ONE (13:57)
[2022-07-05 15:10] LABS: BLOOD UREA NITROGEN 6 MG/DL (7-18); C REACTIVE PROTEIN QUANTITATIV 0.77 MG/DL (0.00-0.30); CALCIUM LEVEL 7.8 MG/DL (8.5-10.1); CARBON DIOXIDE LEVEL 22 MEQ/L (21-32); CHLORIDE LEVEL 116 MEQ/L (98-107); CREATININE FOR GFR 0.47 MG/DL (0.55-1.30); GLOMERULAR FILTRATION RATE > 60.0 (>58); GLUCOSE, FASTING 89 MG/DL (70-100); POTASSIUM SERUM 3.7 MEQ/L (3.5-5.1); SODIUM LEVEL 146 MEQ/L (136-145)
[2022-07-05] MEDS ORDERED: RIZATRIPTAN MLT 10 MG TAB PO PRN (16:30)
[2022-07-05] MEDS ORDERED: ACETAMINOPHEN TAB 650MG DOSE (2X325MG) PO PRN (16:30)
[2022-07-05] MEDS ORDERED: LIDOCAINE 5% (LIDODERM) PATCH TD PRN (16:30)
[2022-07-05] MEDS: HYDROMORPHONE HCL 0.5 MG/ 0.5 ML SYRINGE (J1170 PER 1) IV PRN ×2 (17:48→21:57)
[2022-07-05] MEDS ORDERED: NAPROXEN 250 MG TAB PO PRN (18:00)
[2022-07-05] MEDS: CYCLOBENZAPRINE 5MG TABLET PO PRN ×2 (18:41→23:39)
[2022-07-05] MEDS: KETOROLAC TROMETHAMINE 10 MG TAB PO PRN (18:42)
[2022-07-05 19:07] LABS: INR 0.97; PROTHROMBIN TIME 13.1 SECONDS (12.5-14.5)
[2022-07-05] MEDS ORDERED: LEFLUNOMIDE 10 MG PO SCH (21:00)
[2022-07-05 21:05] VITALS: BP 178/106
[2022-07-05] MEDS: DIVALPROEX 250 MG TAB PO SCH (21:50)
[2022-07-05] MEDS: GABAPENTIN 400MG CAP PO SCH (21:50)
[2022-07-05] MEDS: HYDROXYCHLOROQUINE 200 MG TAB PO SCH (22:02)
[2022-07-05] MEDS: PROPRANOLOL 80 MG LA CAP PO SCH (22:05)
[2022-07-05 22:45] VITALS: BP 148/88
[2022-07-05] MEDS ORDERED: traMADol 50 MG TAB PO ONE (23:35)
[2022-07-06] MEDS: KETOROLAC TROMETHAMINE 10 MG TAB PO PRN (00:50)
[2022-07-06] MEDS: HYDROMORPHONE HCL 0.5 MG/ 0.5 ML SYRINGE (J1170 PER 1) IV PRN ×4 (01:37→13:57)
[2022-07-06] MEDS ORDERED: MORPHINE 4 MG/ML 1ML VIAL/SYRINGE IV ONE (04:00)
[2022-07-06 05:45] LABS: BASO # 0.1 10^3/uL (0.0-0.2); EOS # 0.2 10^3/uL (0.0-0.5); EOS % 2.7 % (0.0-3.0); HEMOGLOBIN 11.4 g/dl (12.0-15.5); LYMPH # 2.3 10^3/uL (1.5-5.0); LYMPH % 36.5 % (24.0-44.0); MEAN CORPUSCULAR HEMOGLOBIN 27.3 pg (27.0-33.0); MEAN CORPUSCULAR HGB CONC 31.7 g/dl (32.0-36.5); MEAN CORPUSCULAR VOLUME 86.3 fl (80.0-96.0); MONO # 1.1 10^3/uL (0.0-0.8); MONO % 16.9 % (2.0-8.0); NEUTROPHILS # 2.7 10^3/uL (1.5-8.5); NEUTROPHILS % 42.4 % (36.0-66.0); PLATELET COUNT, AUTOMATED 312 10^3/uL (150-450); RED BLOOD COUNT 4.17 10^6/uL (4.00-5.40); WHITE BLOOD COUNT 6.3 10^3/uL (4.0-10.0)
[2022-07-06 06:00] VITALS: BP 153/90
[2022-07-06 06:24] LABS: ALBUMIN 3.1 GM/DL (3.2-5.2); ALT/SGPT 27 U/L (12-78); BILIRUBIN,TOTAL 0.3 MG/DL (0.2-1.0); BLOOD UREA NITROGEN 7 MG/DL (7-18); CALCIUM LEVEL 9.4 MG/DL (8.5-10.1); CARBON DIOXIDE LEVEL 29 MEQ/L (21-32); CHLORIDE LEVEL 108 MEQ/L (98-107); CREATININE FOR GFR 0.68 MG/DL (0.55-1.30); GLOMERULAR FILTRATION RATE > 60.0 (>58); GLUCOSE, FASTING 102 MG/DL (70-100); POTASSIUM SERUM 4.6 MEQ/L (3.5-5.1); SODIUM LEVEL 141 MEQ/L (136-145)
[2022-07-06] MEDS ORDERED: NS 1,000 ML IV SCH (07:40)
[2022-07-06] MEDS: GABAPENTIN 400MG CAP PO SCH ×3 (08:40→21:10)
[2022-07-06] MEDS: HYDROXYCHLOROQUINE 200 MG TAB PO SCH ×2 (08:40→21:11)
[2022-07-06] MEDS: DIVALPROEX 250 MG TAB PO SCH ×2 (08:40→21:10)
[2022-07-06] MEDS: DULoxetine 20 MG CAP (CYMBALTA) PO SCH (08:40)
[2022-07-06 14:00] VITALS: BP 156/90
[2022-07-06] MEDS ORDERED: VANCOMYCIN 1000MG/20ML VIAL As Ordered ONE (15:55)
[2022-07-06] MEDS ORDERED: fentaNYL 100 MCG/2 ML INJECTION As Ordered ONE (16:30)
[2022-07-06] MEDS ORDERED: MIDAZOLAM INJ 2MG/2ML VIAL (J2250 PER 1MG) As Ordered ONE (16:31)
[2022-07-06] MEDS ORDERED: propofoL 200 MG/20 ML VIAL As Ordered ONE (16:32)
[2022-07-06] MEDS ORDERED: ONDANSETRON 4MG 2ML VIAL As Ordered ONE (16:32)
[2022-07-06] MEDS ORDERED: LIDOCAINE 2% 100MG/5ML SDV (FOR ANES.) As Ordered ONE (16:32)
[2022-07-06] MEDS ORDERED: ROCURONIUM BROMIDE 50 MG/5 ML VIAL As Ordered ONE (16:32)
[2022-07-06] MEDS ORDERED: BUPIVACAINE HCL 0.5% 30ML VIAL As Ordered ONE (16:48)
[2022-07-06] MEDS ORDERED: BUPIVACAINE LIPOSOME/PF 1.3% 20ML VIAL (13.3MG/ML)(EXPAREL) As Ordered ONE (16:48)
[2022-07-06] MEDS ORDERED: LR 1,000 ML IV SCH ×3 (17:00→19:55)
[2022-07-06] MEDS ORDERED: TRANEXAMIC ACID 100 MG/ML 10ML VIAL As Ordered ONE (17:05)
[2022-07-06] MEDS ORDERED: ceFAZolin 2 GM/D5W 50 ML IV BAG (J0690 PER 500MG) As Ordered ONE (17:05)
[2022-07-06] MEDS ORDERED: SCOPOLAMINE 1MG TRANSDERMAL PATCH TOP ONE (17:15)
[2022-07-06] MEDS ORDERED: ePHEDrine SULFATE 25 MG/5 ML(5MG/ML) SYRINGE As Ordered ONE ×2 (17:18→18:05)
[2022-07-06] MEDS ORDERED: PHENYLephrine 500MCG 5ML (100MCG/ML) SYRINGE As Ordered ONE (18:05)
[2022-07-06] MEDS ORDERED: THROMBIN SOLN 20,000 UNITS KIT As Ordered ONE (18:27)
[2022-07-06] MEDS ORDERED: SUGAMMADEX SODIUM 500 MG/5 ML VIAL (BRIDION) As Ordered ONE (18:54)
[2022-07-06] MEDS ORDERED: ACETAMINOPHEN 1000MG 100ML IV BTL (OFIRMEV) (J0131 PER 10MG) As Ordered ONE (18:57)
[2022-07-06] MEDS ORDERED: HYDROmorphone HCL 2MG/ML 1ML VIAL As Ordered ONE (19:13)
[2022-07-06] MEDS ORDERED: ONDANSETRON 4MG 2ML VIAL IV PRN ×2 (19:20→19:55)
[2022-07-06] MEDS ORDERED: PERCOCET 5MG/325MG TAB PO PRN (19:20)
[2022-07-06] MEDS ORDERED: fentaNYL 100 MCG/2 ML INJECTION IV PRN ×2 (19:20→19:55)
[2022-07-06] MEDS: MORPHINE 2 MG/ML 1ML VIAL IV PRN ×3 (19:52→20:23)
[2022-07-06] MEDS ORDERED: HYDROMORPHONE HCL 0.5 MG/ 0.5 ML SYRINGE (J1170 PER 1) IV PRN (19:55)
[2022-07-06] MEDS ORDERED: oxyCODONE 5MG TAB PO PRN (19:55)
[2022-07-06 20:45] VITALS: BP 156/91
[2022-07-06] MEDS: PROPRANOLOL 80 MG LA CAP PO SCH (21:11)
[2022-07-06 21:15] VITALS: BP 155/96
[2022-07-06 22:15] VITALS: BP 157/98
[2022-07-06] MEDS: CYCLOBENZAPRINE 5MG TABLET PO PRN (22:42)
[2022-07-06 23:15] VITALS: BP 158/98
[2022-07-07 00:15] VITALS: BP 165/101
[2022-07-07] MEDS: KETOROLAC TROMETHAMINE 10 MG TAB PO PRN (00:45)
[2022-07-07 01:15] VITALS: BP 166/102
[2022-07-07] MEDS: ceFAZolin SOD 1 GM in D5W MINI-BAG PLUS 50 ML IV SCH ×2 (01:50→08:25)
[2022-07-07] MEDS: HYDROMORPHONE HCL 0.5 MG/ 0.5 ML SYRINGE (J1170 PER 1) IV PRN ×6 (01:51→22:05)
[2022-07-07 04:30] VITALS: BP 161/100
[2022-07-07] MEDS: PERCOCET 5MG/325MG TAB PO PRN ×3 (04:55→18:13)
[2022-07-07 06:57] LABS: BASO # 0.1 10^3/uL (0.0-0.2); BASO % 0.7 % (0.0-1.0); EOS # 0.1 10^3/uL (0.0-0.5); EOS % 1.6 % (0.0-3.0); HEMATOCRIT 35.3 % (36.0-47.0); LYMPH # 2.2 10^3/uL (1.5-5.0); LYMPH % 26.8 % (24.0-44.0); MEAN CORPUSCULAR HEMOGLOBIN 27.4 pg (27.0-33.0); MEAN CORPUSCULAR HGB CONC 31.2 g/dl (32.0-36.5); MONO # 1.1 10^3/uL (0.0-0.8); MONO % 13.9 % (2.0-8.0); NEUTROPHILS # 4.6 10^3/uL (1.5-8.5); NEUTROPHILS % 56.8 % (36.0-66.0); PLATELET COUNT, AUTOMATED 312 10^3/uL (150-450); RED BLOOD COUNT 4.01 10^6/uL (4.00-5.40); WHITE BLOOD COUNT 8.1 10^3/uL (4.0-10.0)
[2022-07-07 07:27] LABS: BLOOD UREA NITROGEN 5 MG/DL (7-18); CALCIUM LEVEL 8.8 MG/DL (8.5-10.1); CARBON DIOXIDE LEVEL 30 MEQ/L (21-32); CHLORIDE LEVEL 106 MEQ/L (98-107); CREATININE FOR GFR 0.73 MG/DL (0.55-1.30); GLOMERULAR FILTRATION RATE > 60.0 (>58); GLUCOSE, FASTING 88 MG/DL (70-100); POTASSIUM SERUM 4.6 MEQ/L (3.5-5.1); SODIUM LEVEL 139 MEQ/L (136-145)
[2022-07-07] MEDS: GABAPENTIN 400MG CAP PO SCH ×3 (08:19→20:19)
[2022-07-07] MEDS: DIVALPROEX 250 MG TAB PO SCH ×2 (08:19→20:20)
[2022-07-07] MEDS: DULoxetine 20 MG CAP (CYMBALTA) PO SCH (08:19)
[2022-07-07] MEDS: HYDROXYCHLOROQUINE 200 MG TAB PO SCH ×2 (08:19→20:19)
[2022-07-07 09:30] LABS: C REACTIVE PROTEIN QUANTITATIV 1.11 MG/DL (0.00-0.30)
[2022-07-07] MEDS: CYCLOBENZAPRINE 5MG TABLET PO PRN ×2 (11:23→20:18)
[2022-07-07 14:00] VITALS: BP 129/79
[2022-07-07] MEDS ORDERED: HYDROMORPHONE HCL 0.5 MG/ 0.5 ML SYRINGE (J1170 PER 1) IV ONE (19:00)
[2022-07-07] MEDS ORDERED: LIDOCAINE 5% (LIDODERM) PATCH TD PRN (19:05)
[2022-07-07] MEDS: PROPRANOLOL 80 MG LA CAP PO SCH (20:19)
[2022-07-07] MEDS ORDERED: GABAPENTIN 100 MG CAP PO ONE (20:35)
[2022-07-07 21:42] VITALS: BP 143/90
[2022-07-08] MEDS: PERCOCET 5MG/325MG TAB PO PRN ×5 (01:24→20:43)
[2022-07-08 06:00] VITALS: BP 138/94
[2022-07-08 08:03] LABS: HEMATOCRIT 33.7 % (36.0-47.0); HEMOGLOBIN 10.6 g/dl (12.0-15.5); MEAN CORPUSCULAR HEMOGLOBIN 27.5 pg (27.0-33.0); MEAN CORPUSCULAR HGB CONC 31.5 g/dl (32.0-36.5); MEAN CORPUSCULAR VOLUME 87.3 fl (80.0-96.0); PLATELET COUNT, AUTOMATED 291 10^3/uL (150-450); RED BLOOD COUNT 3.86 10^6/uL (4.00-5.40); WHITE BLOOD COUNT 8.4 10^3/uL (4.0-10.0)
[2022-07-08 08:31] LABS: ATYPICAL LYMPH 6 % (0-5); BASOPHILS 3 % (0-1); BLOOD UREA NITROGEN 4 MG/DL (7-18); CALCIUM LEVEL 9.1 MG/DL (8.5-10.1); CARBON DIOXIDE LEVEL 31 MEQ/L (21-32); CHLORIDE LEVEL 107 MEQ/L (98-107); CREATININE FOR GFR 0.69 MG/DL (0.55-1.30); EOSINOPHILS 2 % (0-3); GLOMERULAR FILTRATION RATE > 60.0 (>58); GLUCOSE, FASTING 121 MG/DL (70-100); LYMPHOCYTES 25 % (16-44); MONOCYTES 10 % (0-5); NEUTROPHILS 54 % (28-66); POTASSIUM SERUM 4.9 MEQ/L (3.5-5.1); SODIUM LEVEL 141 MEQ/L (136-145)
[2022-07-08 08:32] LABS: PLATELET CLUMPS SMALL AMT; PLATELET ESTIMATE NORMAL (NORMAL)
[2022-07-08] MEDS: HYDROMORPHONE HCL 0.5 MG/ 0.5 ML SYRINGE (J1170 PER 1) IV PRN ×4 (08:53→22:41)
[2022-07-08] MEDS: HYDROXYCHLOROQUINE 200 MG TAB PO SCH ×2 (08:54→20:42)
[2022-07-08] MEDS: GABAPENTIN 400MG CAP PO SCH (08:54)
[2022-07-08] MEDS: DIVALPROEX 250 MG TAB PO SCH ×2 (08:54→20:42)
[2022-07-08] MEDS: DULoxetine 20 MG CAP (CYMBALTA) PO SCH (08:54)
[2022-07-08] MEDS: ASPIRIN 81MG ENTERIC TABLET PO SCH (09:49)
[2022-07-08] MEDS: CYCLOBENZAPRINE 5MG TABLET PO PRN ×2 (11:50→20:42)
[2022-07-08] MEDS ORDERED: GABAPENTIN 400MG CAP PO SCH (16:00)
[2022-07-08] MEDS: GABAPENTIN 300 MG CAP PO SCH ×2 (16:03→20:42)
[2022-07-08] MEDS: ENOXAPARIN 40MG/0.4ML SYRINGE (J1650 PER 10MG) SC SCH (20:42)
[2022-07-08] MEDS: PROPRANOLOL 80 MG LA CAP PO SCH (20:42)
[2022-07-08 22:00] VITALS: BP 142/95
[2022-07-09] MEDS: HYDROMORPHONE HCL 0.5 MG/ 0.5 ML SYRINGE (J1170 PER 1) IV PRN (02:47)
[2022-07-09] MEDS: CYCLOBENZAPRINE 5MG TABLET PO PRN ×2 (04:40→15:57)
[2022-07-09] MEDS: PERCOCET 5MG/325MG TAB PO PRN ×5 (04:41→21:20)
[2022-07-09 06:00] VITALS: BP 134/87
[2022-07-09 06:13] LABS: BASO # 0.1 10^3/uL (0.0-0.2); BASO % 0.9 % (0.0-1.0); EOS # 0.2 10^3/uL (0.0-0.5); EOS % 2.3 % (0.0-3.0); HEMATOCRIT 33.3 % (36.0-47.0); HEMOGLOBIN 10.6 g/dl (12.0-15.5); LYMPH # 2.6 10^3/uL (1.5-5.0); LYMPH % 39.4 % (24.0-44.0); MEAN CORPUSCULAR HEMOGLOBIN 27.6 pg (27.0-33.0); MEAN CORPUSCULAR HGB CONC 31.8 g/dl (32.0-36.5); MEAN CORPUSCULAR VOLUME 86.7 fl (80.0-96.0); MONO % 15.3 % (2.0-8.0); NEUTROPHILS # 2.7 10^3/uL (1.5-8.5); NEUTROPHILS % 41.8 % (36.0-66.0); PLATELET COUNT, AUTOMATED 284 10^3/uL (150-450); RED BLOOD COUNT 3.84 10^6/uL (4.00-5.40); WHITE BLOOD COUNT 6.5 10^3/uL (4.0-10.0)
[2022-07-09 06:43] LABS: BLOOD UREA NITROGEN 3 MG/DL (7-18); CALCIUM LEVEL 9.3 MG/DL (8.5-10.1); CARBON DIOXIDE LEVEL 31 MEQ/L (21-32); CHLORIDE LEVEL 106 MEQ/L (98-107); CREATININE FOR GFR 0.72 MG/DL (0.55-1.30); GLOMERULAR FILTRATION RATE > 60.0 (>58); GLUCOSE, FASTING 144 MG/DL (70-100); POTASSIUM SERUM 4.3 MEQ/L (3.5-5.1); SODIUM LEVEL 141 MEQ/L (136-145)
[2022-07-09] MEDS: GABAPENTIN 300 MG CAP PO SCH ×3 (08:55→21:17)
[2022-07-09] MEDS: DULoxetine 20 MG CAP (CYMBALTA) PO SCH (08:55)
[2022-07-09] MEDS: ASPIRIN 81MG ENTERIC TABLET PO SCH (08:55)
[2022-07-09] MEDS: DIVALPROEX 250 MG TAB PO SCH ×2 (08:55→21:17)
[2022-07-09] MEDS: HYDROXYCHLOROQUINE 200 MG TAB PO SCH ×2 (08:55→21:17)
[2022-07-09] MEDS: ENOXAPARIN 40MG/0.4ML SYRINGE (J1650 PER 10MG) SC SCH (21:18)
[2022-07-09] MEDS: PROPRANOLOL 80 MG LA CAP PO SCH (21:24)
[2022-07-10] MEDS: CYCLOBENZAPRINE 5MG TABLET PO PRN
[2022-07-10] MEDS: PERCOCET 5MG/325MG TAB PO PRN ×3 (01:59→12:57)
[2022-07-10 06:00] VITALS: BP 167/93
[2022-07-10 06:01] LABS: BASO # 0.1 10^3/uL (0.0-0.2); BASO % 0.9 % (0.0-1.0); EOS # 0.2 10^3/uL (0.0-0.5); HEMATOCRIT 35.3 % (36.0-47.0); LYMPH # 2.5 10^3/uL (1.5-5.0); MEAN CORPUSCULAR HEMOGLOBIN 27.2 pg (27.0-33.0); MEAN CORPUSCULAR HGB CONC 31.2 g/dl (32.0-36.5); MEAN CORPUSCULAR VOLUME 87.2 fl (80.0-96.0); MONO % 15.3 % (2.0-8.0); NEUTROPHILS # 2.6 10^3/uL (1.5-8.5); NEUTROPHILS % 40.5 % (36.0-66.0); PLATELET COUNT, AUTOMATED 298 10^3/uL (150-450); RED BLOOD COUNT 4.05 10^6/uL (4.00-5.40); WHITE BLOOD COUNT 6.3 10^3/uL (4.0-10.0)
[2022-07-10 06:30] LABS: BLOOD UREA NITROGEN 3 MG/DL (7-18); CALCIUM LEVEL 9.2 MG/DL (8.5-10.1); CARBON DIOXIDE LEVEL 29 MEQ/L (21-32); CHLORIDE LEVEL 105 MEQ/L (98-107); CREATININE FOR GFR 0.61 MG/DL (0.55-1.30); GLOMERULAR FILTRATION RATE > 60.0 (>58); GLUCOSE, FASTING 129 MG/DL (70-100); POTASSIUM SERUM 3.8 MEQ/L (3.5-5.1); SODIUM LEVEL 141 MEQ/L (136-145)
[2022-07-10] MEDS: DULoxetine 20 MG CAP (CYMBALTA) PO SCH (08:54)
[2022-07-10] MEDS: ASPIRIN 81MG ENTERIC TABLET PO SCH (08:54)
[2022-07-10] MEDS: GABAPENTIN 300 MG CAP PO SCH (08:54)
[2022-07-10] MEDS: HYDROXYCHLOROQUINE 200 MG TAB PO SCH (08:54)
[2022-07-10] MEDS: DIVALPROEX 250 MG TAB PO SCH (08:54)
[2022-07-10] MEDS ORDERED: CARVedilol 12.5 MG TAB PO SCH (09:00)
[2022-07-10] MEDS ORDERED: PERCOCET PO (12:27)
[2022-07-10 13:44] VITALS: BP 161/94
[2022-07-10 14:16] VITALS: BP 166/94
[2022-07-10 14:56] VITALS: BP 150/93
[2022-07-10] MEDS ORDERED: PROPRANOLOL 80 MG LA CAP PO ONE (15:00)
[2022-07-10] MEDS ORDERED: PROPRANOLOL 80 MG LA CAP PO SCH (21:00)
== END 2022-07-10 15:45 | disposition home health service (06) | DRG 520 ==
LOC: M ED 11:04 → M ED INP 16:28 → ENRESERV 18:30 → M MS5PR 21:05
PROVIDERS: ADMIT Internal Medicine; ATTEND Internal Medicine
PROC: 0SB40ZZ Excision of Lumbosacral Disc, Open Approach (ICD-10-PCS; principal; 2022-07-06 12:00)
DX: M51.27 Other intervertebral disc displacement, lumbosacral region (principal); I10 Essential (primary) hypertension; G43.909 Migraine, unspecified, not intractable, without status migrainosus; M32.10 Systemic lupus erythematosus, organ or system involvement unspecified; M79.7 Fibromyalgia; Z91.040 Latex allergy status; Z79.899 Other long term (current) drug therapy

== ENCOUNTER → 2022-07-16 | Outpatient (REF) | payer OTHER ==
[~2022-07-16] MED LIST changes: +DIVA250T67 PO; +DULO1CAP4 PO; +HYDR200T3 PO; +KETO10TAB PO; +NAPR-885 PO; +OXYC10TA3 PO; +PERCOCET PO; +PROP80CA PO
== END ==
LOC: M LAB REF 17:00
PROVIDERS: ATTEND Registered Nurse
DX: R30.0 Dysuria (principal)

== ENCOUNTER 2022-09-20 12:44 | Outpatient (RCR) | payer OTHER | END 2022-09-22 | LOC: M PT 12:44 | PROVIDERS: ATTEND Orthopaedic Surgery | DX: M51.16 Intervertebral disc disorders with radiculopathy, lumbar region (principal) ==

== ENCOUNTER 2022-10-18 14:50 | Outpatient (RCR) | payer OTHER | END 2022-10-23 | LOC: M PT 14:50 | PROVIDERS: ATTEND Orthopaedic Surgery | DX: M51.16 Intervertebral disc disorders with radiculopathy, lumbar region (principal) ==

== ENCOUNTER 2022-11-14 14:23 | Outpatient (RCR) | payer OTHER | END 2022-11-20 | LOC: M PT 14:23 | PROVIDERS: ATTEND Orthopaedic Surgery | DX: M51.16 Intervertebral disc disorders with radiculopathy, lumbar region (principal) ==

== ENCOUNTER 2022-12-20 09:15 | Outpatient (RCR) | payer OTHER | END 2022-12-21 | LOC: M PT 09:15 | PROVIDERS: ATTEND Orthopaedic Surgery | DX: M51.16 Intervertebral disc disorders with radiculopathy, lumbar region (principal) ==

== ENCOUNTER 2023-03-07 02:56 | Emergency (ER) | payer OTHER ==
[~2023-03-07] VITALS: Ht 160 cm; Wt 70.9 kg
[~2023-03-07 02:56] MED LIST changes: -HYDR200T3 PO; +HYDR200T46 PO
[2023-03-07] MEDS ORDERED: LIDOCAINE 5% (LIDODERM) PATCH TD ONE (07:05)
[2023-03-07] MEDS ORDERED: ACETAMINOPHEN 500 MG TAB PO ONE (07:05)
[2023-03-07] MEDS ORDERED: KETOROLAC 30 MG/ML 1ML VIAL IV ONE (07:05)
[2023-03-07] MEDS: HYDROMORPHONE HCL 0.5 MG/ 0.5 ML SYRINGE IV PRN ×4 (08:57→12:26)
[2023-03-07 09:20] LABS: HEMATOCRIT 41.5 % (36.0-47.0); HEMOGLOBIN 13.5 g/dl (12.0-15.5); MEAN CORPUSCULAR HGB CONC 32.5 g/dl (32.0-36.5); MEAN CORPUSCULAR VOLUME 85.9 fl (80.0-96.0); PLATELET COUNT, AUTOMATED 299 10^3/uL (150-450); RED BLOOD COUNT 4.83 10^6/uL (4.00-5.40); WHITE BLOOD COUNT 6.8 10^3/uL (4.0-10.0)
[2023-03-07 09:45] LABS: BLOOD UREA NITROGEN 10 MG/DL (9-23); CALCIUM LEVEL 8.5 MG/DL (8.5-10.1); CARBON DIOXIDE LEVEL 25 MMOL/L (20-31); CHLORIDE LEVEL 109 MMOL/L (98-107); CREATININE FOR GFR 0.73 MG/DL (0.55-1.30); GLOMERULAR FILTRATION RATE > 60.0 (>58); GLUCOSE, FASTING 84 MG/DL (60-100); POTASSIUM SERUM 4.2 MMOL/L (3.5-5.1); SODIUM LEVEL 139 MMOL/L (136-145)
[2023-03-07 12:49] VITALS: BP 162/78; TEMP 98.2; O2SAT 98
== END 2023-03-07 12:52 | disposition short-term general hospital (02) ==
LOC: M ED 02:56 → EDBD 02:56 → M ED 12:52
DX: M51.26 Other intervertebral disc displacement, lumbar region (principal); M51.27 Other intervertebral disc displacement, lumbosacral region; G43.909 Migraine, unspecified, not intractable, without status migrainosus; M32.9 Systemic lupus erythematosus, unspecified; M79.7 Fibromyalgia; Z91.040 Latex allergy status; Z79.1 Long term (current) use of non-steroidal anti-inflammatories (NSAID); Z79.899 Other long term (current) drug therapy
CPT/HCPCS: 72131; 80048; 85027; 87635; 96374; 96375; 96376; 99285; J1170; J1885

== ENCOUNTER → 2023-08-18 | Outpatient (REF) | payer OTHER ==
[~2023-08-18] MED LIST changes: -GABA-283 PO; +GABA-284 PO
== END ==
LOC: M LAB REF 19:45
PROVIDERS: ATTEND Physician Assistant
DX: R30.0 Dysuria (principal)

== ENCOUNTER → 2023-10-19 | Outpatient (REF) | payer OTHER | LOC: M WUC 19:02 | PROVIDERS: ATTEND Student in an Organized Health Care Education/Training Program | DX: R30.0 Dysuria (principal) ==

== ENCOUNTER → 2024-02-20 | Outpatient (REF) | payer OTHER | LOC: M LAB REF 17:09 | PROVIDERS: ATTEND Registered Nurse | DX: R30.0 Dysuria (principal) ==

== ENCOUNTER → 2024-02-24 | Outpatient (REF) | payer OTHER | LOC: M LAB REF 17:02 | PROVIDERS: ATTEND Registered Nurse | DX: N89.8 Other specified noninflammatory disorders of vagina (principal) ==

== ENCOUNTER → 2024-07-03 | Outpatient (CLI) | payer OTHER ==
[~2024-07-03] MED LIST changes: +GABA-1172 PO; -GABA-282 PO; +TRAM1TAB42 PO; -TRAM37.53 PO
[2024-07-03 13:18] LABS: BASO # 0.1 10^3/uL (0.0-0.2); EOS # 0.1 10^3/uL (0.0-0.5); EOS % 1.8 % (0.0-3.0); HEMATOCRIT 41.1 % (36.0-47.0); HEMOGLOBIN 12.8 g/dl (12.0-15.5); LYMPH # 2.1 10^3/uL (1.5-5.0); LYMPH % 30.8 % (24.0-44.0); MEAN CORPUSCULAR HEMOGLOBIN 27.3 pg (27.0-33.0); MEAN CORPUSCULAR HGB CONC 31.1 g/dl (32.0-36.5); MEAN CORPUSCULAR VOLUME 87.6 fl (80.0-96.0); MONO % 15.2 % (2.0-8.0); NEUTROPHILS # 3.4 10^3/uL (1.5-8.5); NEUTROPHILS % 51.1 % (36.0-66.0); PLATELET COUNT, AUTOMATED 314 10^3/uL (150-450); RED BLOOD COUNT 4.69 10^6/uL (4.00-5.40); WHITE BLOOD COUNT 6.7 10^3/uL (4.0-10.0)
[2024-07-03 13:40] LABS: VALPROIC ACID (DEPAKOTE) 19.2 UG/ML (50.0-100.0)
[2024-07-03 13:41] LABS: ALBUMIN 3.4 G/DL (3.2-5.2); ALKALINE PHOSPHATASE 58 U/L (46-116); ALT/SGPT 16 U/L (7.0-40); AST/SGOT 15 U/L (<34); BILIRUBIN,TOTAL 0.4 MG/DL (0.3-1.2); BLOOD UREA NITROGEN 13 MG/DL (9-23); CALCIUM LEVEL 9.7 MG/DL (8.5-10.1); CARBON DIOXIDE LEVEL 28 MMOL/L (20-31); CHLORIDE LEVEL 111 MMOL/L (98-107); CREATININE FOR GFR 0.67 MG/DL (0.55-1.30); GLOMERULAR FILTRATION RATE > 60.0 (>58); GLUCOSE, FASTING 76 MG/DL (60-100); POTASSIUM SERUM 5.2 MMOL/L (3.5-5.1); SODIUM LEVEL 138 MMOL/L (136-145); TOTAL PROTEIN 6.5 G/DL (5.7-8.2)
== END ==
LOC: M WUC 09:31
PROVIDERS: ATTEND Psychiatry & Neurology Neurology
DX: R51.9 Headache, unspecified (principal)

== ENCOUNTER → 2024-09-09 | Outpatient (CLI) | payer OTHER ==
[~2024-09-09] MED LIST changes: -CYCL5TAB PO; +CYCL5TAB4 PO
[2024-09-09 12:24] LABS: BASO # 0.1 10^3/uL (0.0-0.2); BASO % 0.8 % (0.0-1.0); EOS # 0.2 10^3/uL (0.0-0.5); EOS % 2.8 % (0.0-3.0); HEMOGLOBIN 12.5 g/dl (12.0-15.5); LYMPH # 2.2 10^3/uL (1.5-5.0); MEAN CORPUSCULAR HEMOGLOBIN 27.5 pg (27.0-33.0); MEAN CORPUSCULAR HGB CONC 31.3 g/dl (32.0-36.5); MEAN CORPUSCULAR VOLUME 88.1 fl (80.0-96.0); MONO # 0.9 10^3/uL (0.0-0.8); MONO % 13.3 % (2.0-8.0); NEUTROPHILS # 3.3 10^3/uL (1.5-8.5); NEUTROPHILS % 49.9 % (36.0-66.0); PLATELET COUNT, AUTOMATED 263 10^3/uL (150-450); RED BLOOD COUNT 4.54 10^6/uL (4.00-5.40); WHITE BLOOD COUNT 6.5 10^3/uL (4.0-10.0)
[2024-09-09 12:41] LABS: ALBUMIN 3.3 G/DL (3.2-5.2); ALKALINE PHOSPHATASE 56 U/L (35-104); ALT/SGPT 18 U/L (7.0-40); AST/SGOT 19 U/L (<34); BILIRUBIN,TOTAL 0.4 MG/DL (0.3-1.2); BLOOD UREA NITROGEN 12 MG/DL (9-23); CALCIUM LEVEL 9.6 MG/DL (8.5-10.1); CARBON DIOXIDE LEVEL 27 MMOL/L (20-31); CHLORIDE LEVEL 108 MMOL/L (98-107); CHOLESTEROL LEVEL 235 MG/DL (<200); CHOLESTEROL RISK RATIO 4.01 (<5); CREATININE FOR GFR 0.79 MG/DL (0.55-1.30); GLOMERULAR FILTRATION RATE > 60.0 (>58); GLUCOSE, FASTING 74 MG/DL (60-100); HDL CHOLESTEROL 58.5 MG/DL (>40); LDL CHOLESTEROL 127.3 MG/DL (<100); NON-HDL-C 176.5 MG/DL; POTASSIUM SERUM 5.6 MMOL/L (3.5-5.1); SODIUM LEVEL 141 MMOL/L (136-145); TOTAL PROTEIN 6.4 G/DL (5.7-8.2); TRIGLYCERIDES LEVEL 246 MG/DL (<150)
[2024-09-09 12:43] LABS: FREE T4 0.91 NG/DL (0.89-1.76); THYROID STIMULATING HORMONE 2.346 uIU/ML (0.55-4.78)
[2024-09-09 13:10] LABS: HEMOGLOBIN A1c 4.9 % (4.0-6.0)
== END ==
LOC: M WUC 08:51
PROVIDERS: ATTEND Registered Nurse
DX: Z00.00 Encounter for general adult medical examination without abnormal findings (principal)

== ENCOUNTER → 2025-07-22 | Outpatient (CLI) | payer OTHER ==
[~2025-07-22] MED LIST changes: +ERGO125013 PO; -PROZ20CA11 PO; +PROZ20CA12 PO; -VITA500045 PO
[2025-07-22 13:07] LABS: ALT/SGPT 23 U/L (7.0-40); AST/SGOT 22 U/L (<34); CALCIUM LEVEL 10.0 MG/DL (8.5-10.1); CARBON DIOXIDE LEVEL 26 MMOL/L (20-31); CHLORIDE LEVEL 106 MMOL/L (98-107); CHOLESTEROL LEVEL 278 MG/DL (<200); CHOLESTEROL RISK RATIO 4.55 (<5); CREATININE FOR GFR 0.75 MG/DL (0.55-1.30); GLOMERULAR FILTRATION RATE > 90.0 (>58); LDL CHOLESTEROL 159.0 MG/DL (<100); NON-HDL-C 217.0 MG/DL; POTASSIUM SERUM 5.2 MMOL/L (3.5-5.1); SODIUM LEVEL 142 MMOL/L (136-145); TRIGLYCERIDES LEVEL 290 MG/DL (<150)
[2025-07-22 13:19] LABS: ESTIMATED AVERAGE GLUCOSE 105.0 MG/DL (60-110)
== END ==
LOC: M WUC 08:31
PROVIDERS: ATTEND Registered Nurse
DX: E78.2 Mixed hyperlipidemia (principal)